=== PATIENT | female | born 1935 | race Asian ===

== ENCOUNTER 2018-03-03 03:51 | Emergency (ER) | payer MEDICARE ==
[~2018-03-03] VITALS: Ht 149.9 cm; Wt 59.0 kg
[2018-03-03] MEDS ORDERED: METFORMIN HCL500 M1 ORAL (03:56)
[2018-03-03] MEDS ORDERED: GLIPIZIDE5 MG ORAL (03:56)
[2018-03-03] MEDS ORDERED: HYDROCHLOROTH12.5 MG ORAL (03:56)
[2018-03-03] MEDS ORDERED: ACTOS15 MG ORAL (03:56)
[2018-03-03] MEDS ORDERED: SIMVASTATIN5 MG ORAL (03:56)
[2018-03-03] MEDS ORDERED: ASPIR 8181 MG ORAL (03:56)
[2018-03-03] MEDS ORDERED: ADALAT10 MG ORAL (03:56)
[2018-03-03 04:00] VITALS: BP 131/78
--- NOTE | 2018-03-03 04:08 | Emergency Room Report ---
History of Present Illness General Chief Complaint: Multiple Trauma/Fall Source: Patient, Family Member, EMS Present Illness HPI Is an 81-year-old [place] speaking female with a history of CVA with weakness. She has he uses a walker. She also has history of diabetes and high blood pressure. She presents with chief complaint of a fall. She was trying to grab her walker and fell and hit the ground. No loss of consciousness. She has a laceration to the left ear. No fever chills but no nausea no vomiting. According to her she has been weaker than usual. She has cough that is thick but unable to get it up. His been ongoing for about a week. Denies any chest pain. Decreased appetite. No other complaint. Not on anticoagulation other than aspirin. Allergies: Coded Allergies: No Known Allergies (Unverified , 03/03/18) Patient History Past Medical History: see triage record, old chart reviewed, DM, HTN, CVA/TIA Past Surgical History: other Pertinent Family History: none Social History: Denies: smoking Now: No Immunizations: UTD Reviewed Nursing Documentation: PMH: Agreed; PSxH: Agreed Nursing Documentation-PMH Past Medical History: No History, Except For Hx Hypertension: Yes Hx Diabetes: Yes Hx Cerebrovascular Accident: Yes Review of Systems Constitutional: Reports: weakness Eye: Denies: eye pain, blurred vision ENT: Denies: ear pain, nose congestion, throat swelling Respiratory: Reports: cough, shortness of breath Cardiovascular: Denies: chest pain, palpitations Gastrointestinal: Denies: abdominal pain, diarrhea, nausea, vomiting Musculoskeletal: Denies: back pain, joint pain Skin: Denies: rash Neurological: Denies: headache, numbness Endocrine: Denies: increased thirst, increased urine Hematologic/Lymphatic: Denies: easy bruising All Other Systems: negative except mentioned in HPI Physical Exam Vital Signs Date Time Temp Pulse Resp B/P (MAP) Pulse Ox O2 Delivery O2 Flow Rate FiO2 03/03/18 03:46 98.4 97 18 144/81 98 Room Air vitals normal Sp02 EP Interpretation: reviewed, normal General Appearance: well appearing, no apparent distress, alert Head: normocephalic, atraumatic Eyes: bilateral eye PERRL, bilateral eye EOMI ENT: hearing grossly normal, normal pharynx, other - Right ear: There is a 1 cm laceration over the pinna. Neck: full range of motion, supple, no meningismus Respiratory: chest non-tender, normal breath sounds, rhonchi Cardiovascular #1: regular rate, rhythm, no murmur Gastrointestinal: normal bowel sounds, non tender, no mass, no organomegaly, no bruit, non-distended Musculoskeletal: back normal, gait/station normal, normal range of motion Psychiatric: mood/affect normal Skin: warm/dry Medical Decision Making Diagnostic Impression: Primary Impression: Head injury, acute Qualified Codes: S09.90XA - Unspecified injury of head, initial encounter Additional Impressions: Laceration of ear, right, simple Qualified Codes: S01.311A - Laceration without foreign body of right ear, initial encounter Community acquired pneumonia Qualified Codes: J18.1 - Lobar pneumonia, unspecified organism Acute prerenal azotemia ER Course Patient presents with a fall with head injury and ear laceration. No evidence of any bleed or C-spine injury. Laceration repair with tissue adhesive. She has a very thick cough. Chest x-ray showed left lower lobe infiltrate. CBC unremarkable. Antibiotics given. Based on her age and history of CVA and other medical problem, will transferred for admission to [place]. She is otherwise stable. I discussed case with Dr. Zepeda, [place] [facility]. . He accepted pt for transfer. will try to transfer to [place] per family's request. Laboratory Tests Test 03/03/18 04:54 White Blood Count 9.0 K/UL (4.8-10.8) Red Blood Count 4.53 M/UL (4.20-5.40) Hemoglobin 12.3 G/DL (12.0-16.0) Hematocrit 37.0 % (37.0-47.0) Mean Corpuscular Volume 82 FL (80-99) Mean Corpuscular Hemoglobin 27.1 PG (27.0-31.0) Mean Corpuscular Hemoglobin Concent 33.1 G/DL (32.0-36.0) Red Cell Distribution Width 11.7 % (11.6-14.8) Platelet Count 348 K/UL (150-450) Mean Platelet Volume 5.1 FL (6.5-10.1) L Neutrophils (%) (Auto) 70.5 % (45.0-75.0) Lymphocytes (%) (Auto) 23.3 % (20.0-45.0) Monocytes (%) (Auto) 4.0 % (1.0-10.0) Eosinophils (%) (Auto) 1.5 % (0.0-3.0) Basophils (%) (Auto) 0.8 % (0.0-2.0) Sodium Level 137 MMOL/L (136-145) Potassium Level 4.6 MMOL/L (3.5-5.1) Chloride Level 101 MMOL/L (98-107) Carbon Dioxide Level 25 MMOL/L (21-32) Anion Gap 11 mmol/L (5-15) Blood Urea Nitrogen 32 mg/dL (7-18) H Creatinine 1.1 MG/DL (0.55-1.30) Estimat Glomerular Filtration Rate mL/min (>60) Glucose Level 67 MG/DL (74-106) L Lactic Acid Level Pending Calcium Level 9.4 MG/DL (8.5-10.1) Total Bilirubin 0.3 MG/DL (0.2-1.0) Aspartate Amino Transf (AST/SGOT) 33 U/L (15-37) Alanine Aminotransferase (ALT/SGPT) 31 U/L (12-78) Alkaline Phosphatase 110 U/L (46-116) Total Creatine Kinase 80 U/L (26-308) Creatine Kinase MB 2.1 NG/ML (0.0-3.6) Creatine Kinase MB Relative Index 2.6 Troponin I 0.008 ng/mL (0.000-0.056) Pro-B-Type Natriuretic Peptide 123 pg/mL (0-125) Total Protein 8.6 G/DL (6.4-8.2) H Albumin 3.5 G/DL (3.4-5.0) Globulin 5.1 g/dL Albumin/Globulin Ratio 0.7 (1.0-2.7) L Lab Results Impression labs unremarkable. EKG Diagnostic Results Rate: normal Rhythm: NSR ST Segments: no acute changes Rhythm Strip Diag. Results Rhythm Strip Time: 04:08 EP Interpretation: yes Rate: 90 Rhythm: NSR, no PVC's, no ectopy Chest X-Ray Diagnostic Results Chest X-Ray Diagnostic Results : Chest X-Ray Ordered: Yes # of Views/Limited/Complete: 1 View Indication: Shortness of Breath EP Interpretation: Yes Interpretation: no effusion, no pneumothorax, other - LLL infiltrate Impression: Other - LLL infiltrate Electronically Signed by: Kamari Weaver MD CT/MRI/US Diagnostic Results CT/MRI/US Diagnostic Results #1: Imaging Test Ordered: CT head Impression Read by radiologist. Chronic lacunar infarcts in right thalamus. no acute process. CT/MRI/US Diagnostic Results #2: Imaging Test Ordered: Ct C spine Impression Read by radiologist. mild degenerative changes. no frx. Last Vital Signs Date Time Temp Pulse Resp B/P (MAP) Pulse Ox O2 Delivery O2 Flow Rate FiO2 03/03/18 03:46 98.4 97 18 144/81 98 Room Air Status: improved Disposition: [facility]FER [facility] Condition: Stable Kamari Weaver MD Mar 03, 2018 04:08
[2018-03-03 05:14] LABS: BASOPHILS % (AUTO) 0.8 % (0.0-2.0); EOSINOPHILS % (AUTO) 1.5 % (0.0-3.0); HEMOGLOBIN 12.3 G/DL (12.0-16.0); LYMPHOCYTES % (AUTO) 23.3 % (20.0-45.0); MEAN CORPUSCULAR VOLUME 82 FL (80-99); NEUTROPHILS % (AUTO) 70.5 % (45.0-75.0); PLATELET COUNT 348 K/UL (150-450); RED BLOOD COUNT 4.53 M/UL (4.20-5.40); RED CELL DISTRIBUTION WIDTH 11.7 % (11.6-14.8)
[2018-03-03] MEDS ORDERED: Azithromycin 500 MG in NS 275 ML IV ONE (05:15)
[2018-03-03] MEDS ORDERED: cefTRIAXone 1 GM in NS 55 ML IVPB ONE (05:15)
[2018-03-03 05:18] LABS: ANION GAP 11 mmol/L (5-15); BLOOD UREA NITROGEN 32 mg/dL (7-18); CALCIUM 9.4 MG/DL (8.5-10.1); CARBON DIOXIDE 25 MMOL/L (21-32); CHLORIDE 101 MMOL/L (98-107); CREATININE 1.1 MG/DL (0.55-1.30); POTASSIUM 4.6 MMOL/L (3.5-5.1); SODIUM 137 MMOL/L (136-145)
[2018-03-03] MEDS ORDERED: Sodium Chloride 500ML 500 ML IV ONE (05:30)
[2018-03-03 05:32] LABS: ALANINE AMINOTRANSFERASE 31 U/L (12-78); ALBUMIN 3.5 G/DL (3.4-5.0); ALBUMIN/GLOBULIN RATIO 0.7 (1.0-2.7); ALKALINE PHOSPHATASE 110 U/L (46-116); ASPARTATE AMINO TRANSFERASE 33 U/L (15-37); BILIRUBIN,TOTAL 0.3 MG/DL (0.2-1.0); CKMB 2.1 NG/ML (0.0-3.6); CREATINE KINASE 80 U/L (26-308)
[2018-03-03 06:40] VITALS: BP 132/73
--- NOTE | 2018-03-03 09:31 | Diagnostic Imaging Report ---
Indication: Neck pain after falling when getting out of bed Technique: Spiral acquisitions obtained through the cervical spine. No IV contrast utilized. Multiplanar reconstructions were generated. Total dose length product 211.41 mGycm. CTDIvol(s) 11.3 mGy. Dose reduction achieved using automated exposure control. Comparison: none Findings: Bony alignment is normal. The vertebral body heights are preserved. No acute fractures. No dislocations. There is degenerative disc narrowing at C4-5 and minimally at C5-6. The remaining disc spaces are preserved. At C4-5, there is degenerative disc narrowing as mentioned above. Posterior osteophytes result in moderate to severe narrowing of the spinal canal, with one focal osteophyte impinging upon the cord just to the left of midline. There is also moderate narrowing of the bilateral neural foramina at this level. At C5-6, there is minimal degenerative disc narrowing. There is broad-based central posterior disc protrusion which results in moderate narrowing the spinal canal. There is also left lateral osteophyte which may impinge upon the left side of the cord or the lateral recess. There is moderate stenosis of the right neural foramen at this level. At the remaining disc levels, no significant disc bulge or protrusion, spinal stenosis, or neural foraminal stenosis. The included extraspinal soft tissues are unremarkable. Impression: No acute bony trauma Degenerative changes as detailed on a level basis above This agrees with the preliminary interpretation provided overnight by [facility]. The CT scanner at [facility] is accredited by the [employer] and the scans are performed using protocols designed to limit radiation exposure to as low as reasonably achievable to attain images of sufficient resolution adequate for diagnostic evaluation.
--- NOTE | 2018-03-03 09:35 | Diagnostic Imaging Report ---
Indications: Fell getting out of bed. Head injury, scalp laceration, pain Technique: Spiral acquisitions obtained through the brain. Angled axial and coronal 5 x 5 mm slices were reconstructed. Total dose length product 1417.76 mGycm. CTDI vol(s) 70.38 mGy. Dose reduction achieved using automated exposure control Comparison: None. Findings: There is age-related enlargement of the ventricles and extra axial CSF spaces. There is encephalomalacia of the right posterior parietal and posterior temporal deep white matter. There is extensive periventricular deep white matter low-attenuation consistent with chronic ischemic change. Old lacunar infarct is seen in the right thalamus. There is questionably an old lacunar infarct in the right side of the midbrain and left side of the joyce. No acute intracranial hemorrhage nor edema. No mass effect nor midline shift. There is fairly extensive sinus disease. The calvarium is intact. The mastoids are clear. There is evidence of prior bilateral cataract surgery. 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 Multiple old lacunar infarcts as described Negative for acute intracranial bleed or mass effect Sinus disease This agrees with the preliminary interpretation provided overnight by [facility]. The CT scanner at [facility] is accredited by the [employer] and the scans are performed using protocols designed to limit radiation exposure to as low as reasonably achievable to attain images of sufficient resolution adequate for diagnostic evaluation.
--- NOTE | 2018-03-03 15:26 | Diagnostic Imaging Report ---
Indication: Shortness of breath Technique: One view of the chest Comparison: none Findings: There is suggestion of patchy infiltrate at the left lung base. The heart is borderline enlarged. The aorta is tortuous ectatic and calcified. Impression: Possible patchy left basilar infiltrate. Correlate with clinical finding
--- NOTE | 2018-03-04 17:51 | Cardiology Report ---
APPROVED REPORT EKG Measurement Heart [id number] Normal sinus rhythm Normal ECG
== END 2018-03-03 06:40 | disposition short-term general hospital (02) ==
LOC: EDBD 03:51 → EMR 04:52
DX: S09.90XA Unspecified injury of head, initial encounter (principal); S01.312A Laceration without foreign body of left ear, initial encounter; W19.XXXA Unspecified fall, initial encounter; Y92.009 Unspecified place in unspecified non-institutional (private) residence as the place of occurrence of the external cause; J18.9 Pneumonia, unspecified organism; R39.2 Extrarenal uremia; Z86.73 Personal history of transient ischemic attack (TIA), and cerebral infarction without residual deficits
CPT/HCPCS: 36415; 70450; 71045; 72125; 80053; 82550; 82553; 83605; 83880; 84484; 85025; 87040; 87181; 93005; 96365; 96368; 99284; J0456; J0696; J7050